=== PATIENT | female | born 1980 | race American Indian/Alaskan Native ===

== ENCOUNTER 2019-07-08 19:19 | Emergency (ER) | payer MEDICAID ==
--- NOTE | 2019-07-08 19:42 | Event Note ---
ED Screening Note Date of service: 07/08/19 Time: 19:39 ED Screening Note: 39 y o female presents with headaches localized to frontal region, waxing and waning x 6-8 hours cc of photosentivity and pain worse with movement, some nausea accompanied with heaache denies blurred vision, This initial assessment/diagnostic orders/clinical plan/treatment(s) is/are subject to change based on patients health status, clinical progression and re- assessment by fellow clinical providers in the ED. Further treatment and workup at subsequent clinical providers discretion. Patient/guardian urged not to elope from the ED as their condition may be serious if not clinically assessed and managed. Initial orders include: acc eval IV benadryl,zofran
[2019-07-08 19:43] VITALS: BP 129/69
[2019-07-08] MEDS ORDERED: PROMETHAZINE 25 MG TAB PO ONE (22:13)
[2019-07-08] MEDS ORDERED: BUTALB/ACETAMINOPHEN/CAFFEINE TAB PO ONE (22:13)
[2019-07-08] MEDS ORDERED: KETOROLAC 30 MG/1 ML INJ IM ONE (22:13)
--- NOTE | 2019-07-09 01:15 | Cat Scan Report ---
CT head without contrast INDICATION : Headache for several days. TECHNIQUE: Axial imaging performed from the skull apex through the skull base without the use of con trast. All CT examinations performed at this facility utilize dose modulation, iterative reconstruct ion or weight-based dosing, when appropriate, to reduce radiation dose to as low as reasonably achiev able. COMPARISON: None FINDINGS: No acute intracranial hemorrhage or parenchymal abnormality. Ventricles are normal in si ze and appear symmetric. Soft tissues including the orbits appear normal. No acute osseous abnorm ality. Sinuses and mastoid air cells are clear. IMPRESSION: No acute abnormality. Signer Name: Leo Frankel MD Signed: 07/09/2019 1:10 AM Workstation Name: [id number]
--- NOTE | 2019-07-09 02:22 | Emergency Department Report ---
ED Headache HPI - General Chief Complaint: Headache Stated Complaint: MIGRAINE Source: patient Exam Limitations: no limitations - History of Present Illness Initial Comments: Patient is a 39-year-old -[place] female with a history of chronic migraine headaches who presents to the ED with complaint of acute exacerbation of her chronic migraine headaches correctors left frontal and left retro-orbital pressure with nausea and vomiting intermittently for the last 1 month. Patient states that she has been taking [id number] medications with no relief. Patient states that she was initially evaluated for the same [facility] and was discharged home on some headache medications which resulted headache but the headache rebounded a few days afterwards. Patient states that she has been dealing with a headache with no medication the last 3 days but in the last 12 hours these symptoms got worse. Patient denies dizziness, syncope, chest pain, shortness of breath, fever, chills, cough, sore throat, nasal and sinus congestion, change in vision or neck pain. Timing/Duration: waxing and waning, other (> 4 weeks; nausea and vomiting) Head Injury Location: frontal (left), other (left retro-orbital) Recent Head Trauma: chronic headaches Modifying Factors: improves with: medication Associated Symptoms: denies symptoms, nausea/vomiting. denies: confusion, fatigue, facial pain, fever/chills, flushing, loss of consciousness, nasal congestion, nasal drainage, numbness in legs/feet, seizures, sinus infection, vision changes, weakness, other Allergies/Adverse Reactions: Allergies No Known Allergies Allergy (Unverified 07/08/19 19:33) Home Medications: Ambulatory Orders Butalb/Acetamin/Caff 50-325-40 [Fioricet 50-325-40] 1 tab PO Q6HR PRN #12 tab 07/09/19 Ketorolac [Toradol] 10 mg PO Q8H PRN #20 tablet 07/09/19 Promethazine [Phenergan] 25 mg PO Q6HR PRN #30 tab 07/09/19 ED Review of Systems ROS: Stated complaint: MIGRAINE Other details as noted in HPI Constitutional: denies: chills, fever Eyes: denies: eye pain, eye discharge, vision change ENT: denies: ear pain, throat pain Respiratory: denies: cough, shortness of breath, wheezing Cardiovascular: denies: chest pain, palpitations Endocrine: no symptoms reported Gastrointestinal: nausea, vomiting. denies: abdominal pain, diarrhea Genitourinary: denies: urgency, dysuria, discharge Musculoskeletal: denies: back pain, joint swelling, arthralgia Skin: denies: rash, lesions Neurological: headache. denies: weakness, paresthesias Psychiatric: denies: anxiety, depression Hematological/Lymphatic: denies: easy bleeding, easy bruising ED Past Medical Hx - Past Medical History Previous Medical History?: No - Surgical History Past Surgical History?: Yes Additional Surgical History: tubal ligation 2002 - Social History Smoking Status: Current Every Day Smoker Substance Use Type: None - Medications Home Medications: Home Medications Medication Instructions Recorded Confirmed Last Taken Type Butalb/Acetamin/Caff 50-325-40 1 tab PO Q6HR PRN #12 tab 07/09/19 Unknown Rx [Fioricet 50-325-40] Ketorolac [Toradol] 10 mg PO Q8H PRN #20 tablet 07/09/19 Unknown Rx Promethazine [Phenergan] 25 mg PO Q6HR PRN #30 tab 07/09/19 Unknown Rx ED Physical Exam - General Limitations: No Limitations General appearance: alert, in no apparent distress - Head Head exam: Present: atraumatic, normocephalic, normal inspection - Eye Eye exam: Present: normal appearance, PERRL, EOMI Pupils: Present: normal accommodation - ENT ENT exam: Present: normal exam, normal orophraynx, mucous membranes moist, TM's normal bilaterally, normal external ear exam - Neck Neck exam: Present: normal inspection, full ROM - Respiratory Respiratory exam: Present: normal lung sounds bilaterally. Absent: respiratory distress, wheezes, rales, rhonchi, chest wall tenderness, decreased breath sounds - Cardiovascular Cardiovascular Exam: Present: regular rate, normal rhythm, normal heart sounds. Absent: systolic murmur, diastolic murmur, rubs, gallop - GI/Abdominal GI/Abdominal exam: Present: soft, normal bowel sounds. Absent: distended, tenderness, guarding, hyperactive bowel sounds, hypoactive bowel sounds, organomegaly - Extremities Exam Extremities exam: Present: normal inspection, full ROM, normal capillary refill - Back Exam Back exam: Present: normal inspection, full ROM. Absent: tenderness, CVA tenderness (R), CVA tenderness (L), muscle spasm, paraspinal tenderness, vertebral tenderness - Neurological Exam Neurological exam: Present: alert, oriented X3, CN II-XII intact, normal gait, reflexes normal - Psychiatric Psychiatric exam: Present: normal affect, normal mood - Skin Skin exam: Present: warm, dry, intact, normal color. Absent: rash ED Course Vital Signs 07/08/19 19:39 Temperature 98.4 F Pulse Rate 77 Respiratory 18 Rate Blood Pressure 129/69 Blood Pressure 129/69 [Right] O2 Sat by Pulse 99 Oximetry ED Medical Decision Making - Radiology Data Radiology results: report reviewed, image reviewed Findings [facility] [address] [place] [address] Cat Scan Report Signed Patient: RAKEL FRANCIS MR#: [id number] : 1980 Acct:[id number] Age/Sex: 39 / F ADM Date: 07/08/19 Loc: ED Attending Dr: Ordering Physician: KEL CHAVEZ Date of Service: 07/08/19 Procedure(s): CT head/brain wo con Accession Number(s): [id number] cc: KEL CHAVEZ CT head without contrast INDICATION : Headache for several days. TECHNIQUE: Axial imaging performed from the skull apex through the skull base without the use of contrast. All CT examinations performed at this facility utilize dose modulation, iterative reconstruction or weight-based dosing, when appropriate, to reduce radiation dose to as low as reasonably achievable. COMPARISON: None FINDINGS: No acute intracranial hemorrhage or parenchymal abnormality. Ventric les are normal in size and appear symmetric. Soft tissues including the orbits appear normal. No acute osseous abnormality. Sinuses and mastoid air cells are clear. IMPRESSION: No acute abnormality. Signer Name: Leo Frankel MD Signed: 07/09/2019 1:10 AM Workstation Name: [id number] Transcribed By: BC Dictated By: Leo Frankel MD Electronically Authenticated By: Leo Frankel MD Signed Date/Time: 07/09/19109 DD/ 9 TD/TT: - Medical Decision Making This is 39-year-old female with a history of chronic migraine headaches who presented to the ED with acute exacerbation of her chronic headache characterized by left frontal and left retro-orbital pressure for the last 4 weeks intermittently. In the ED, patient is alert and oriented 3 and is not in distress. Patient was treated for headache and head CT scan without contrast shows no acute intracranial hemorrhage or parenchymal abnormality. Ventricles are normal in size and appear symmetric. Soft tissues including the orbits appear normal. No acute osseous abnormality. Sinuses and mastoid air cells are clear. On reevaluation, patient's pain is well controlled with medications, he adache is resolved as well as nausea and vomiting. Patient discharged home on medications and advised to follow-up with her primary care physician in 5-7 days for reevaluation or return to the ED immediately if symptoms get worse. - Differential Diagnosis migraine headache; sinusitis; sinus headache; tension headache Critical care attestation.: If time is entered above; I have spent that time in minutes in the direct care of this critically ill patient, excluding procedure time. ED Disposition Clinical Impression: Nausea and vomiting in adult Migraine headache without aura Qualifiers: Status migrainosus presence: without status migrainosus Intractability: not intractable Qualified Code(s): G43.009 - Migraine without aura, not intractable, without status migrainosus Disposition: DC- TO HOME OR SELFCARE Is pt being admited?: No Does the pt Need Aspirin: No Condition: Stable Instructions: Migraine Headache (ED), Acute Nausea and Vomiting (ED) Additional Instructions: Take medications with food, drink plenty of fluids and follow-up with your primary care physician in 5-7 days for reevaluation. Return to the ED immediately if symptoms get worse. Prescriptions: Butalb/Acetamin/Caff 50-325-40 [Fioricet 50-325-40] 1 tab PO Q6HR PRN #12 tab PRN Reason: Headache Promethazine [Phenergan] 25 mg PO Q6HR PRN #30 tab PRN Reason: Nausea Ketorolac [Toradol] 10 mg PO Q8H PRN #20 tablet PRN Reason: Pain Referrals: [facility] [Outside] - 3-5 Days Forms: Work/School Release Form(ED) Time of Disposition: 02:23 Print Language: CZECH
== END 2019-07-09 02:44 | disposition home or self-care (01) ==
LOC: ED 19:19
DX: G43.009 Migraine without aura, not intractable, without status migrainosus (principal)
CPT/HCPCS: 70450; 96372; 99283; J1885; Q0169